=== PATIENT | male | born 1945 | race Caucasian/White ===

== ENCOUNTER → 2024-03-01 08:44 | Outpatient (REF) | payer MEDICARE, OTHER, SELFPAY ==
[2024-03-01 12:49] LABS: HDL Cholesterol 67 mg/dl; LDL Cholesterol, Calculated 76 mg/dl; Total Cholesterol 153 mg/dl (50-199); Triglyceride 52 mg/dl (10-149); Very Low Density Lipoprotein 10 mg/dl (0-30)
== END ==
LOC: RCS 08:44
PROVIDERS: ATTENDING PHYSICIAN Internal Medicine Cardiovascular Disease; FAMILY PHYSICIAN Family Medicine
DX: I49.3 Ventricular premature depolarization (principal); I44.7 Left bundle-branch block, unspecified; I42.9 Cardiomyopathy, unspecified; Z98.890 Other specified postprocedural states; I70.0 Atherosclerosis of aorta; E78.00 Pure hypercholesterolemia, unspecified
CPT/HCPCS: 36415; 80061; 93306

== ENCOUNTER → 2024-05-28 11:17 | Outpatient (REF) | payer MEDICARE, OTHER, SELFPAY | LOC: HWRAD 11:17 | PROVIDERS: ATTENDING PHYSICIAN Family Medicine | DX: R31.0 Gross hematuria (principal) | CPT/HCPCS: 76770 ==